=== PATIENT | male | born 1970 | race American Indian/Alaskan Native ===

== ENCOUNTER 2017-05-28 11:00 | Outpatient (CLI) | payer OTHER | END 2017-05-28 11:01 | disposition home or self-care (01) | LOC: SLR 11:00 | PROVIDERS: ATTEND Specialist | DX: G47.33 Obstructive sleep apnea (adult) (pediatric) (principal) | CPT/HCPCS: 95811 ==

== ENCOUNTER 2018-05-21 14:44 | Outpatient (CLI) | payer OTHER ==
--- NOTE | 2018-05-21 16:43 | XRay Report ---
PROCEDURE: XR SHOULDER BILAT 2+V TECHNIQUE: AP, Y, and oblique views of the bilateral shoulder HISTORY: DISABILITY EXAM,SHOULDER PAIN bilaterally COMPARISONS: None . FINDINGS: There is no evidence of acute fracture or dislocation. Joint spaces are maintained and bony mineraliz ation is normal. Soft tissues are unremarkable. IMPRESSION: No acute abnormality identified in the bilateral shoulders. This document is electronically signed by Gabby Sanchez MD., May 21 2018 04:41:25 PM ET
--- NOTE | 2018-05-21 18:26 | XRay Report ---
PROCEDURE: XR HIP 2-3V RT HISTORY: DISABILITY EXAM,HIP PAIN FINDINGS: AP view of the pelvis was acquired as well as AP and lateral views of the right hip No fracture is seen in the pelvis or right hip. Hip joint space appears preserved bilaterally. IMPRESSION: No fracture or malalignment of the pelvis or hips This document is electronically signed by Dylan King MD., May 21 2018 06:24:40 PM ET
== END 2018-05-21 14:45 | disposition home or self-care (01) ==
LOC: XRAY 14:44
PROVIDERS: ATTEND Internal Medicine
DX: Z02.71 Encounter for disability determination (principal); M15.3 Secondary multiple arthritis; M25.512 Pain in left shoulder; M25.511 Pain in right shoulder